=== PATIENT | female | born 1955 | race African-American/Black ===

== ENCOUNTER 2017-09-25 17:59 | Emergency (ER) | payer OTHER ==
[2017-09-25 18:06] VITALS: TEMP 97.5; BMI 32.9
--- NOTE | 2017-09-25 18:06 | PDOC ---
Rapid Medical Evaluation Time Seen by Provider: 09/25/17 18:01 Medical Evaluation: Allergies Allergy/AdvReac Type Severity Reaction Status Date / Time Penicillins Allergy Severe Verified 08/06/15 12:22 09/25/17 18:01 I have performed a brief in-person evaluation of this patient. The patient presents with a chief complaint of: headache x "months", got worse today, 5/10 pain, denies N/V, left side pain, denies CP/SOB/weakness, has only taken Tylenol for pain Pertinent physical exam findings: well appearing, VSS I have ordered the following: labs, head ct The patient will proceed to the ED for further evaluation. Discharge Disposition - Diagnosis Headache - Referrals Referrals: Cole Baltazar MD [Primary Care Provider] - - Patient Instructions - Post Discharge Activity
[2017-09-25 19:06] LABS: BASO % 0.8 % (0-2.0); HEMATOCRIT 38.8 % (32.4-45.2); LYMPH % 39.4 % (8-40); MCH 29.2 pg (25.7-33.7); MCHC 33.6 g/dl (32.0-36.0); MEAN CELL VOLUME 86.8 fl (80-96); MEAN PLT VOLUME 7.6 fl (7.5-11.1); MONO % 8.1 % (3.8-10.2); NEUT % 49.7 % (42.8-82.8); PLATELET COUNT 238 K/MM3 (134-434); RBC 4.47 M/mm3 (3.60-5.2); RDW 15.4 % (11.6-15.6)
[2017-09-25 19:37] LABS: ALBUMIN 3.6 g/dl (3.4-5.0); ANION GAP 7 (8-16); BLOOD UREA NITROGEN 15 mg/dL (7-18); CHLORIDE 106 mmol/L (98-107); CO2 28 mmol/L (21-32); GLUCOSE,RANDOM 105 mg/dL (74-106); POTASSIUM 3.8 mmol/L (3.5-5.1); SODIUM 141 mmol/L (136-145)
[2017-09-25 19:41] LABS: ALK PHOS 51 U/L (45-117); BILIRUBIN,TOTAL 0.6 mg/dL (0.2-1.0); CREATININE 0.9 mg/dL (0.55-1.02); SGOT/AST 17 U/L (15-37); SGPT/ALT 22 U/L (12-78); TOT PROT 7.6 g/dl (6.4-8.2)
[2017-09-25] MEDS ORDERED: METOCLOPRAMIDE HCL INJECTION 10 MG/2 ML VIAL IVPUSH ONE (19:47)
[2017-09-25] MEDS ORDERED: ACETAMINOPHEN 1000 MG/100 ML VIAL (NON FORMULARY) IVPB ONE (19:47)
[2017-09-25] MEDS ORDERED: SODIUM CHLORIDE 0.9% 1000 ML INFUS.BAG IV ONE (19:47)
[2017-09-25] MEDS ORDERED: METOCLOPRAMIDE HCL INJECTION 10 MG/2 ML VIAL ONE (19:58)
[2017-09-25] MEDS ORDERED: ACETAMINOPHEN INJECTION 100 ML IVPB ONE (19:58)
--- NOTE | 2017-09-25 20:34 | PDOC ---
History of Present Illness - General History Source: Patient Exam Limitations: No Limitations - History of Present Illness Initial Comments: 09/25/17 20:41 The patient is a 62 year old female with significant past medical history of acid reflux is brought to the emergency department complaining of left sided headaches. The patient reports the headache manifested after a fall where she hit her head more than a month ago. The patient reports shes been experiencing headaches for a month now but last week on its been worse. The patient reports she takes 2 tablet extra strength Tylenol almost everyday with mild to no relief.The patient had a appointment to see her PCP but due to the work she was unable to. The patient reports the main is mainly on the left side of the head but claims at times it radiates to her whole head. Allergies: Penicillin Surg History: None reported PCP: Dr. Cole Baltazar Social History: None reported <Katlin Veras - Last Filed: 09/25/17 20:41> <Elaina Lott - Last Filed: 09/25/17 21:30> - General Chief Complaint: Headache Stated Complaint: PAIN, HEADACHE Time Seen by Provider: 09/25/17 18:01 Past History <Katlin Veras - Last Filed: 09/25/17 20:41> - Past Medical History Anemia: No Asthma: No Cancer: No Cardiac Disorders: No CVA: No COPD: No CHF: No DVT: No Dementia: No Diabetes: No GI Disorders: Yes (acid reflux) Disorders: No HTN: No Hypercholesterolemia: No Liver Disease: No Seizures: No Thyroid Disease: No - Surgical History Abdominal Surgery: No Appendectomy: No Cardiac Surgery: No Cholecystectomy: No Lung Surgery: No Neurologic Surgery: No Orthopedic Surgery: No - Suicide/Smoking/Psychosocial Hx Smoking History: Never smoked Have you smoked in the past 12 months: No Information on smoking cessation initiated: No Hx Alcohol Use: No Drug/Substance Use Hx: No Substance Use Type: None Hx Substance Use Treatment: No <Elaina Lott - Last Filed: 09/25/17 21:30> - Past Medical History Allergies/Adverse Reactions: Allergies Allergy/AdvReac Type Severity Reaction Status Date / Time Penicillins Allergy Severe Verified 09/25/17 18:06 Home Medications: Ambulatory Orders Aspirin [ASA -] 81 mg PO DAILY 08/26/12 Calcium [Calcio [place]] 500 mg PO DAILY 08/27/12 Hctz 25Mg/Triamterene [Dyazide 25/37.5 -] 1 cap PO DAILY 08/27/12 Omeprazole [Prilosec (RX)] 20 mg PO DAILY 08/27/12 Cyclobenzaprine HCl [Flexeril] 5 mg PO TID PRN #9 tablet 08/06/15 Oxycodone HCl/Acetaminophen [Percocet 5/325 -] 1 tab PO Q4H PRN #10 tablet 08/06 Review of Systems - Review of Systems Able to Perform ROS?: Yes Comments:: 09/25/17 20:41 GENERAL/CONSTITUTIONAL: No fever or chills. No weakness. HEAD, EYES, EARS, NOSE AND THROAT: No change in vision. No ear pain or discharge. No sore throat. CARDIOVASCULAR: No chest pain or shortness of breath. RESPIRATORY: No cough, wheezing, or hemoptysis. GASTROINTESTINAL: No nausea, vomiting, diarrhea or constipation. GENITOURINARY: No dysuria, frequency, or change in urination. MUSCULOSKELETAL: No joint or muscle swelling or pain. No neck or back pain. SKIN: No rash NEUROLOGIC: (+) left sided headache, No vertigo, loss of consciousness, or change in strength/sensation. ENDOCRINE: No increased thirst. No abnormal weight change. HEMATOLOGIC/LYMPHATIC: No anemia, easy bleeding, or history of blood clots. ALLERGIC/IMMUNOLOGIC: No hives or skin allergy. <Katlin Veras - Last Filed: 09/25/17 20:41> *Physical Exam - Vital Signs Last Vital Signs Temp Pulse Resp BP Pulse Ox 97.5 F L 76 18 126/59 100 09/25/17 18:03 09/25/17 18:03 09/25/17 18:03 09/25/17 18:03 09/25/17 18:03 - Physical Exam Comments: 09/25/17 20:41 GENERAL: Awake, alert, and fully oriented, in no acute distress HEAD: No signs of trauma EYES: (+) small left conjunctiva hematoma. PERRLA, EOMI, sclera anicteric ENT: Auricles normal inspection, hearing grossly normal, nares patent, oropharynx clear without exudates. Moist mucosa NECK: Normal ROM, supple, no lymphadenopathy, JVD, or masses LUNGS: Breath sounds equal, clear to auscultation bilaterally. No wheezes, and no crackles HEART: Regular rate and rhythm, normal S1 and S2, no murmurs, rubs or gallops ABDOMEN: Soft, nontender, normoactive bowel sounds. No guarding, no rebound. No masses EXTREMITIES: Normal range of motion, no edema. No clubbing or cyanosis. No cords, erythema, or tenderness NEUROLOGICAL: Cranial nerves II through XII grossly intact. Normal speech, normal gait SKIN: Warm, Dry, normal turgor, no rashes or lesions noted. <Katlin Veras - Last Filed: 09/25/17 20:41> - Vital Signs Last Vital Signs Temp Pulse Resp BP Pulse Ox 97.5 F L 76 18 126/59 100 09/25/17 18:03 09/25/17 18:03 09/25/17 18:03 09/25/17 18:03 09/25/17 18:03 <Elaina Lott - Last Filed: 09/25/17 21:30> ED Treatment Course - LABORATORY CBC & Chemistry Diagram: 09/25/17 18:58 09/25/17 18:58 - ADDITIONAL ORDERS Additional order review: Laboratory Results 09/25/17 18:58 Sodium 141 Potassium 3.8 Chloride 106 Carbon Dioxide 28 Anion Gap 7 L BUN 15 Creatinine 0.9 Creat Clearance w eGFR > 60 Random Glucose 105 Calcium 9.0 Total Bilirubin 0.6 AST 17 ALT 22 Alkaline Phosphatase 51 Total Protein 7.6 Albumin 3.6 09/25/17 18:58 RBC 4.47 MCV 86.8 MCHC 33.6 RDW 15.4 MPV 7.6 Neutrophils % 49.7 Lymphocytes % 39.4 Monocytes % 8.1 Eosinophils % 2.0 Basophils % 0.8 <Katlin Veras - Last Filed: 09/25/17 20:41> - LABORATORY CBC & Chemistry Diagram: 09/25/17 18:58 09/25/17 18:58 - ADDITIONAL ORDERS Additional order review: Laboratory Results 09/25/17 18:58 Sodium 141 Potassium 3.8 Chloride 106 Carbon Dioxide 28 Anion Gap 7 L BUN 15 Creatinine 0.9 Creat Clearance w eGFR > 60 Random Glucose 105 Calcium 9.0 Total Bilirubin 0.6 AST 17 ALT 22 Alkaline Phosphatase 51 Total Protein 7.6 Albumin 3.6 09/25/17 18:58 RBC 4.47 MCV 86.8 MCHC 33.6 RDW 15.4 MPV 7.6 Neutrophils % 49.7 Lymphocytes % 39.4 Monocytes % 8.1 Eosinophils % 2.0 Basophils % 0.8 - RADIOLOGY Radiology Studies Ordered: Category Date Time Status HEAD CT WITHOUT CONTRAST [CT] Stat CT Scan 09/25/17 19:47 Ordered <Elaina Lott - Last Filed: 09/25/17 21:30> Medical Decision Making - Medical Decision Making 09/25/17 20:33 a/p: 62yo female with intermittent pineda x 1 month -no assoc neuro symptoms -no meningeal signs -no recent illness -no focal neuro findings -missed appt with PMD today -will obtain labs, ct head, reglan, ivf, tylenol - reassess -nontoxic in appearance 09/25/17 21:28 re-eval: head ct negative for acute findings, labs reviewed and stable pt states pineda resolved. feeling much better discussed lab and imaging results. eating a turkey sandwich and drinking apple juice stable for d/c to home. discussed follow up with PMD and neuro if the pineda returns answered all questions. <Elaina Lott - Last Filed: 09/25/17 21:30> *DC/Admit/Observation/Transfer - Attestations Scribe Attestion: 09/25/17 20:41 Documentation prepared by Katlin Veras, acting as medical radiation tech for Elaina Lott DO. <Katlin Veras - Last Filed: 09/25/17 20:41> - Discharge Dispostion Admit: No - Attestations Physician Attestion: 09/25/17 21:30 I, Dr. Elaina Lott DO, attest that this document has been prepared under my direction and personally reviewed by me in its entirety. I further attest, that it accurately reflects all work, treatment, procedures and medical decision -making performed by me. <Elaina Lott - Last Filed: 09/25/17 21:30> Diagnosis at time of Disposition: Headache - Discharge Dispostion Disposition: HOME Condition at time of disposition: Stable - Referrals Referrals: Cole Baltazar MD [Primary Care Provider] - Josemanuel Whyte DO [Staff Physician] - - Patient Instructions Printed Discharge Instructions: DI for Headache Additional Instructions: Please take tylenol or motrin if the headache returns. Please follow up with your PMD and the neurologist. Please return to the ED with any further concerns or complaints. - Post Discharge Activity
[2017-09-25 21:05] LABS: URINE APPEARANCE SLCLOUDY; URINE BILIRUBIN NEGATIVE (<2.0 mg/dL); URINE BLOOD NEGATIVE (NEGATIVE); URINE COLOR YELLOW; URINE GLUCOSE (UA) NEGATIVE (NEGATIVE); URINE KETONE NEGATIVE (NEGATIVE); URINE LEUK ESTERASE NEGATIVE (NEGATIVE); URINE NITRITE NEGATIVE (NEGATIVE); URINE PROTEIN NEGATIVE (NEGATIVE); URINE UROBILINOGEN NEGATIVE mg/dL (0.2-1.0)
[2017-09-25 21:48] VITALS: BP 119/82; PULSE 79
== END 2017-09-25 21:49 | disposition home or self-care (01) ==
LOC: JER 17:59
PROC: 3E033NZ Introduction of Analgesics, Hypnotics, Sedatives into Peripheral Vein, Percutaneous Approach (ICD-10-PCS; principal; 2017-09-25)
PROC: 3E033GC Introduction of Other Therapeutic Substance into Peripheral Vein, Percutaneous Approach (ICD-10-PCS; 2017-09-25)
DX: R51 Headache (principal); K21.9 Gastro-esophageal reflux disease without esophagitis; M79.89 Other specified soft tissue disorders; Z79.82 Long term (current) use of aspirin
CPT/HCPCS: 36415; 70450-TC; 80053; 81003; 85025; 99282-25; J0131; J7030

== ENCOUNTER 2019-12-10 11:03 | Emergency (ER) | payer OTHER ==
--- NOTE | 2019-12-10 11:09 | PDOC ---
Rapid Medical Evaluation Chief Complaint: Pain, Acute Time Seen by Provider: 12/10/19 11:04 Medical Evaluation: Allergies Allergy/AdvReac Type Severity Reaction Status Date / Time Penicillins Allergy Severe Verified 12/10/19 11:05 12/10/19 11:07 I performed a brief in-person evaluation of this patient. Pt is a 64 y/o female with right low back pain since 11/26/19 after a fall at work. She was seen in the ED and given Rx for medication but states it has not been helping. Her doctor told her to return to the ED for further evaluation. Pt is requesting an xr. Denies urinary complaints. Pertinent physical exam findings: reproducible right thoracolumbar back tenderness to palpation. + CVA tenderness on the right though likely musculoskeletal. Tender over the R buttocks to palpation. Walking without ataxia. I have ordered the following: lumbar xr, ua, urine culture Patient to proceed to [facility] for further evaluation. Discharge Disposition - Diagnosis Back pain - Referrals - Patient Instructions - Post Discharge Activity
[2019-12-10 11:10] VITALS: BP 140/80; PULSE 82; TEMP 98.5; BMI 31.8
[2019-12-10] MEDS ORDERED: LIDOCAINE 5% TOPICAL PATCH TP ONE (11:34)
[2019-12-10] MEDS ORDERED: KETOROLAC TROMETHAMINE 30 MG/1 ML VIAL IM ONE (11:34)
[2019-12-10] MEDS ORDERED: KETOROLAC TROMETHAMINE 30 MG/1 ML VIAL ONE (11:36)
[2019-12-10] MEDS ORDERED: LIDOCAINE 5% TOPICAL PATCH ONE (11:36)
--- NOTE | 2019-12-10 11:39 | PDOC ---
History of Present Illness - General Chief Complaint: Pain, Acute Stated Complaint: PAIN Time Seen by Provider: 12/10/19 11:04 History Source: Patient - History of Present Illness Occurred: reports: other Severity: reports: moderate Pain Location: reports: back Past History - Medical History Allergies/Adverse Reactions: Allergies Allergy/AdvReac Type Severity Reaction Status Date / Time Penicillins Allergy Severe Verified 12/10/19 11:05 Home Medications: Ambulatory Orders Aspirin [ASA -] 81 mg PO DAILY 08/26/12 Calcium [Calcio [place]] 500 mg PO DAILY 08/27/12 Hctz 25Mg/Triamterene [Dyazide 25/37.5 -] 1 cap PO DAILY 08/27/12 Omeprazole [Prilosec (RX)] 20 mg PO DAILY 08/27/12 Cyclobenzaprine HCl [Flexeril] 5 mg PO TID PRN #9 tablet 08/06/15 Oxycodone HCl/Acetaminophen [Percocet 5/325 -] 1 tab PO Q4H PRN #10 tablet 08/06/15 Diazepam [Valium] 5 mg PO HS #3 tablet MDD 1 11/25/19 Ibuprofen 600 mg PO Q6H #30 tablet 11/25/19 Acetaminophen [Tylenol -] 1,000 mg PO Q6H #30 tablet 12/10/19 Lidocaine 5% Patch [Lidoderm Patch -] 1 patch TP DAILY #7 patch 12/10/19 Anemia: No Asthma: No Cancer: No Cardiac Disorders: No CVA: No COPD: No CHF: No DVT: No Dementia: No Diabetes: No GI Disorders: Yes (acid reflux) Disorders: No HTN: No Hypercholesterolemia: No Liver Disease: No Seizures: No Thyroid Disease: No - Surgical History Abdominal Surgery: No Appendectomy: No Cardiac Surgery: No Cholecystectomy: No Lung Surgery: No Neurologic Surgery: No Orthopedic Surgery: No - Psycho-Social/Smoking History Smoking History: Never smoked Have you smoked in the past 12 months: No - Substance Abuse Hx (Audit-C & DAST Scrn) How often the patient has a drink containing alcohol: Never Score: In Men: 4 or > Positive; In Women: 3 or > Positive: 0 Screen Result (Pos requires Nsg. Audit-10AR): Negative In the last yr the pt used illegal drug/Rx for NonMed reason: No Score: Yes response is considered Positive: 0 Screen Result (Positive result requires Nsg. DAST-10): Negative Review of Systems - Review of Systems Constitutional: No: Chills, Fever, Unexplained wgt Loss ABD/GI: No: Nausea, Vomiting, Abdominal cramping : No: Dysuria, Hematuria Musculoskeletal: Yes: Back Pain Neurological: No: Numbness, Tingling, Weakness *Physical Exam - Vital Signs Last Vital Signs Temp Pulse Resp BP Pulse Ox 98.5 F 82 18 140/80 99 12/10/19 11:06 12/10/19 11:06 12/10/19 11:06 12/10/19 11:06 12/10/19 11:06 - Physical Exam General Appearance: Yes: Appropriately Dressed. No: Apparent Distress HEENT: positive: Normal Voice Neck: positive: Supple Respiratory/Chest: negative: Respiratory Distress Gastrointestinal/Abdominal: positive: Soft. negative: Tender Musculoskeletal: positive: Vertebral Tenderness (to R mid back). negative: CVA Tenderness Integumentary: positive: Dry, Warm Neurologic: positive: Fully Oriented, Alert, Normal Mood/Affect, Motor Strength 5/5 Medical Decision Making - Medical Decision Making 12/10/19 12:37 64 yo morbidly obesed female, no sig hx, here for 2nd visit for back pain. Was seen here ~ 2 weeks for same. Pt works as [employer] and states started after lifting her pt. Pain located to R mid back, does not radiate, achy, 7/10. No radiation of pain, neuro or infectious sxs. Able to bear weight w/ cane now. Motrin and diazepam not helping per pt see exam Persistent LBP 2/2 heavy lifting 2 weeks ago Pain meds not helping at home No neuro sxs No infectious sxs Dose of toradol given and lidoderm patch placed Dc w/ pain control and PMD f/u Discharge - Discharge Information Problems reviewed: Yes Clinical Impression/Diagnosis: Back pain Qualifiers: Back pain location: low back pain Chronicity: acute Back pain laterality: right Sciatica presence: without sciatica Qualified Code(s): M54.5 - Low back pain Condition: Good Disposition: HOME - Additional Discharge Information Prescriptions: Lidocaine 5% Patch [Lidoderm Patch -] 1 patch TP DAILY #7 patch Acetaminophen [Tylenol -] 1,000 mg PO Q6H #30 tablet - Follow up/Referral Referrals: Cole Baltazar MD [Primary Care Provider] - - Patient Discharge Instructions Additional Instructions: Take medications as directed and follow up with your PMD - Post Discharge Activity Work/Back to School Note: Back to Work
[2019-12-10] MEDS ORDERED: LIDOCAINE PATCH REMOVAL MC SCH (22:00)
== END 2019-12-10 11:44 | disposition home or self-care (01) ==
LOC: JERFT 11:03
PROC: 3E023GC Introduction of Other Therapeutic Substance into Muscle, Percutaneous Approach (ICD-10-PCS; principal; 2019-12-10)
DX: M54.5 Low back pain (principal)
CPT/HCPCS: 72100-TC-FY; 99284-25

== ENCOUNTER 2021-09-26 08:57 | Emergency (ER) | payer OTHER ==
[2021-09-26 09:08] VITALS: BP 114/69; PULSE 78; TEMP 98.3; BMI 39.5
[2021-09-26] MEDS ORDERED: KETOROLAC TROMETHAMINE 15 MG/ML VIAL IM ONE (09:51)
[2021-09-26] MEDS ORDERED: METHOCARBAMOL 500 MG TABLET PO ONE (09:52)
[2021-09-26] MEDS ORDERED: METHOCARBAMOL 500 MG TABLET ONE ×3 (09:56→10:03)
[2021-09-26] MEDS ORDERED: KETOROLAC TROMETHAMINE 15 MG/ML VIAL ONE (09:56)
[2021-09-26] MEDS ORDERED: KETOROLAC TROMETHAMINE 30 MG/1 ML VIAL ONE (10:39)
== END 2021-09-26 10:12 | disposition home or self-care (01) ==
LOC: JERFT 08:57
PROC: 3E023GC Introduction of Other Therapeutic Substance into Muscle, Percutaneous Approach (ICD-10-PCS; principal; 2021-09-26)
DX: M54.41 Lumbago with sciatica, right side (principal); M54.42 Lumbago with sciatica, left side
CPT/HCPCS: 99284-25

== ENCOUNTER 2022-01-21 12:48 | Emergency (ER) | payer OTHER ==
[2022-01-21 13:18] VITALS: BP 120/54; PULSE 83; RESP 17; TEMP 98.1; BMI 38.4
[2022-01-21] MEDS ORDERED: KETOROLAC TROMETHAMINE 15 MG/ML VIAL IM ONE (14:48)
[2022-01-21] MEDS ORDERED: KETOROLAC TROMETHAMINE 15 MG/ML VIAL ONE (15:04)
[2022-01-21] MEDS ORDERED: DIPHTH,PERTUSS(ACELL),TET 0.5 ML DISP.SYRIN IM ONE ×2 (15:22→15:55)
[2022-01-21] MEDS ORDERED: CLINDAMYCIN HCL 300 MG CAPSULE PO ONE (15:23)
[2022-01-21] MEDS ORDERED: SULFAMETHOXAZOLE/TRIMETHOPRIM 800MG/160MG D.S. TABLET PO ONE (15:34)
[2022-01-21] MEDS ORDERED: SULFAMETHOXAZOLE/TRIMETHOPRIM 800MG/160MG D.S. TABLET ONE (15:55)
== END 2022-01-21 16:00 | disposition home or self-care (01) ==
LOC: JERFT 12:48
PROC: 3E0233Z Introduction of Anti-inflammatory into Muscle, Percutaneous Approach (ICD-10-PCS; principal; 2022-01-21)
PROC: 3E0234Z Introduction of Serum, Toxoid and Vaccine into Muscle, Percutaneous Approach (ICD-10-PCS; 2022-01-21)
DX: L03.115 Cellulitis of right lower limb (principal); S20.211A Contusion of right front wall of thorax, initial encounter
CPT/HCPCS: 71045-TC-FY; 71101-TC-RT-FY; 73562-TC-RT-FY; 87086; 90715; 99284-25

== ENCOUNTER 2022-11-09 19:19 | Emergency (ER) | payer OTHER ==
[2022-11-09 19:39] VITALS: BP 109/56; PULSE 61; RESP 18; TEMP 98.3; BMI 37.8
== END 2022-11-09 22:44 | disposition home or self-care (01) ==
LOC: JER 19:19
DX: M25.561 Pain in right knee (principal); M25.551 Pain in right hip; W01.190A Fall on same level from slipping, tripping and stumbling with subsequent striking against furniture, initial encounter
CPT/HCPCS: 70450-TC; 72125-TC; 73502-TC-RT-FY; 73562-TC-RT-FY; 99284-25

== ENCOUNTER 2023-10-16 14:20 | Observation (INO) | payer OTHER ==
[2023-10-16 14:29] VITALS: BMI 36.6
[2023-10-16 18:19] LABS: BASO % 0.6 % (0-2.0); EOS % 3.2 % (0-4.5); HEMATOCRIT 31.6 % (32.4-45.2); HEMOGLOBIN 10.5 GM/dL (10.7-15.3); LYMPH % 40.3 % (8-40); MCH 28.1 pg (25.7-33.7); MCHC 33.2 g/dl (32.0-36.0); MEAN CELL VOLUME 84.5 fl (80-96); MEAN PLT VOLUME 6.8 fl (7.5-11.1); MONO % 10.1 % (3.8-10.2); NEUT % 45.8 % (42.8-82.8); PLATELET COUNT 332 10^3/uL (134-434); RBC 3.74 M/mm3 (3.60-5.2); RDW 16.2 % (11.6-15.6); WHITE BLOOD COUNT 6.9 K/mm3 (4.0-10.0)
[2023-10-16 18:25] LABS: INR 1.26 (0.83-1.09); PROTHROMBIN TIME (PATIENT) 14.1 SEC (9.7-13.0)
[2023-10-16 18:28] LABS: ACTIVATED PTT 33.7 SECONDS (25.2-36.5)
[2023-10-16 18:35] LABS: POTASSIUM 4.1 mmol/L (3.5-5.1)
[2023-10-16 18:37] LABS: BLOOD UREA NITROGEN 13.9 mg/dL (7-18); CALCIUM 9.2 mg/dL (8.5-10.1)
[2023-10-16 18:40] LABS: CREATININE 0.8 mg/dL (0.55-1.3)
[2023-10-16 18:42] LABS: BILIRUBIN,TOTAL 0.5 mg/dL (0.2-1); TOT PROT 6.9 g/dl (6.4-8.2)
[2023-10-16] MEDS: ATORVASTATIN CA 40 MG TABLET (FP) PO SCH (21:33)
[2023-10-17] MEDS: oxyCODONE HCL 5 MG TABLET PO PRN (01:00)
[2023-10-17 08:56] LABS: BASO % 0.9 % (0-2.0); EOS % 3.6 % (0-4.5); HEMATOCRIT 29.4 % (32.4-45.2); HEMOGLOBIN 9.6 GM/dL (10.7-15.3); LYMPH % 39.8 % (8-40); MCH 27.9 pg (25.7-33.7); MCHC 32.6 g/dl (32.0-36.0); MEAN CELL VOLUME 85.5 fl (80-96); MEAN PLT VOLUME 6.8 fl (7.5-11.1); MONO % 10.3 % (3.8-10.2); NEUT % 45.4 % (42.8-82.8); PLATELET COUNT 310 10^3/uL (134-434); RBC 3.44 M/mm3 (3.60-5.2); RDW 16.2 % (11.6-15.6); WHITE BLOOD COUNT 5.8 K/mm3 (4.0-10.0)
[2023-10-17 09:15] LABS: POTASSIUM 4.2 mmol/L (3.5-5.1)
[2023-10-17 09:19] LABS: BLOOD UREA NITROGEN 11.6 mg/dL (7-18); CALCIUM 8.9 mg/dL (8.5-10.1)
[2023-10-17 09:23] LABS: CREATININE 0.9 mg/dL (0.55-1.3)
[2023-10-17] MEDS: LOSARTAN POTASSIUM 50 MG TABLET PO SCH (09:54)
[2023-10-17] MEDS: DOCUSATE SODIUM 100 MG CAPSULE (FP) PO SCH (09:54)
[2023-10-17 12:19] VITALS: RESP 18
[2023-10-17] MEDS: RIVAROXABAN 10 MG TABLET PO SCH (17:26)
[2023-10-18] MEDS: ACETAMINOPHEN 325 MG TABLET (FP) PO PRN (06:40)
[2023-10-18 14:08] VITALS: BP 114/64; PULSE 76; TEMP 98.4
== END 2023-10-18 17:00 | disposition home or self-care (01) ==
LOC: JER 14:20 → JERBED 17:44 → J5S 19:36
PROVIDERS: ADMIT Internal Medicine; ATTEND Internal Medicine
DX: M54.50 Low back pain, unspecified (principal); W18.39XA Other fall on same level, initial encounter; Y93.89 Activity, other specified; Y92.89 Other specified places as the place of occurrence of the external cause; R26.81 Unsteadiness on feet; M54.59 Other low back pain; I10 Essential (primary) hypertension; E78.5 Hyperlipidemia, unspecified; K21.9 Gastro-esophageal reflux disease without esophagitis; Z88.0 Allergy status to penicillin
CPT/HCPCS: 36415; 72131-TC; 72192-TC; 73552-TC-LT-FY; 73562-TC-LT-FY; 73590-TC-LT-FY; 73700-TC-RT; 80048; 80053; 85025; 85610; 85730; 86850; 86900; 86901; 93005; 93010; 93971-TC; 97116-GP; 97162-GP; 99285-25; G0378